=== PATIENT | female | born 1975 | race Caucasian/White ===

== ENCOUNTER 2020-02-23 12:17 | Emergency (ER) | payer BC ==
[2020-02-23 12:24] VITALS: BP 168/104; PULSE 88; RESP 18; TEMP 98
[2020-02-23] MEDS ORDERED: FLUORESCEIN STRIPS 1 MG STRIP RIGHT EYE ONE (12:44)
[2020-02-23] MEDS ORDERED: PROPARACAINE 0.5% OPHTH DROPS 15 ML BTL RIGHT EYE SCH (12:45)
--- NOTE | 2020-02-23 13:22 | ED ---
Eye Problem HPI <Mauri Alvarado - Last Filed: 02/23/20 14:01> - General Source: patient Mode of arrival: ambulatory Limitations: no limitations <Nadiya Brandon - Last Filed: 02/23/20 16:26> - General Chief complaint: Eye Problems Stated complaint: rt eye vision loss Time Seen by Provider: 02/23/20 12:29 - History of Present Illness Initial comments: 45-year-old female presenting today for chief complaint of right eye pain she states it began yesterday while she was at work taking medications out of the [employer]. Patient states it was more of a sudden on set, she states the eye is watery and extremely sensitive to light. She denies cutting wood, light exposure, welding, or known FB. Denies contact lens use. Denies URI symptoms. Patient denies autoimmune disease or glaucoma. Pt denies noting haloing. Denies vision loss, but states it is blurry due to the watering and difficult to open due to the light. Patient patient denies any headache rashes or tender sensation of the scalp. Patient states there is some slight deep pain. Patient denies any surrounding redness. Remaining review of systems negative upon arrival patient appears well but uncomfortable (Nadiya Brandon) - Related Data Home Medications Medication Instructions Recorded Confirmed Insulin Glargine,Hum.rec.anlog 45 units SQ BID 02/23/20 02/23/20 [Toujeo Solostar] Previous Rx's Medication Instructions Recorded prednisoLONE ACETATE 1% OPHTH 2 drops RIGHT EYE Q6HR 5 Days #5 ml 02/23/20 [Pred Forte 1%] Allergies Allergy/AdvReac Type Severity Reaction Status Date / Time Sulfa (Sulfonamide Allergy Rash/Hives Verified 02/23/20 12:25 Antibiotics) Review of Systems ROS Other: All systems not noted in ROS Statement are negative. <Mauri Alvarado - Last Filed: 02/23/20 14:01> ROS Other: All systems not noted in ROS Statement are negative. <Nadiya Brandon - Last Filed: 02/23/20 16:26> ROS Statement: Those systems with pertinent positive or pertinent negative responses have been documented in the HPI. Past Medical History Past Medical History: Diabetes Mellitus Additional Past Medical History / Comment(s): MARY History of Any Multi-Drug Resistant Organisms: None Reported Additional Past Surgical History / Comment(s): eye surgery, fibroid tumor, ovarian cyst. Past Psychological History: No Psychological Hx Reported Smoking Status: Former smoker Past Alcohol Use History: None Reported Past Drug Use History: None Reported <Nadiya Brandon - Last Filed: 02/23/20 16:26> General Exam Limitations: no limitations <RomaNadiya Andrew - Last Filed: 02/23/20 16:26> - General Exam Comments Initial Comments: General: The patient is awake and alert, in no distress, and does not appear acutely ill. Eye: +3 mm pupils are equal, round and reactive to light, extra-ocular movements are intact. Some consensual photophobia of the right eye. Mild pain with EOM. No swelling of the surrounding eye. no proptosis. No nystagmus. There is normal conjunctiva of the left eye. Mild-moderate non-limbus sparing injection of the right eye. No cell flare noted. No cloudiness of cornea, or ulceration noted. No FB on lid, No FB identified. No signs of icterus. No uptake of fluorcein, IOP OD 10. OS, OS, OU 20/50. Limited views of retina secondary to no dilation. No tenderness to palpation of the temporal arteries. No rashes or lesions noted on face or scalp. No dendritic lesions noted. Ears, nose, mouth and throat: There are moist mucous membranes and no oral lesions. Cardiovascular: There is a regular rate and rhythm. No murmur, rub or gallop is appreciated. Respiratory: Lungs are clear to auscultation, respirations are non-labored, breath sounds are equal. No wheezes, stridor, rales, or rhonchi. Gastrointestinal: Soft, non-distended, non-tender abdomen without masses or organomegaly noted. There is no rebound or guarding present. Musculoskeletal: Normal ROM, no tenderness. Strength 5/5. Sensation intact. Radial pulses equal bilaterally 2+. Neurological: A&O x 3. CN II-XII intact grossly, There are no obvious motor or sensory deficits. Coordination appears grossly intact. Speech is normal. Skin: Skin is warm and dry and no rashes or lesions are noted. Psychiatric: Cooperative, appropriate mood & affect, normal judgment. (Nadiya Brandon) Course Vital Signs 03/25/20 12:19 Temperature 98.0 F Pulse Rate 88 Respiratory 18 Rate Blood Pressure 168/104 O2 Sat by Pulse 98 Oximetry Medical Decision Making <Mauri Alvarado - Last Filed: 02/23/20 14:01> <Nadiya Brandon - Last Filed: 02/23/20 16:26> - Medical Decision Making Patient also evaluated by myself, Dr. Alvarado. Patient states some onset right eye discomfort yesterday. Right eye is mildly injected. Severe photophobia. Extraocular muscles intact. Visual acuity 20/50 bilateral. Case was discussed in detail with Dr. Kemp who agrees with concern for iritis. He does recommend Predacetate 4 times daily and follow-up tomorrow (Mauri Alvarado) Patient agreeable to discharge and care plan above. Patient's physical examination does not appear consistent with acute angle closure glaucoma for a temporal arteritis, there is no purulent drainage. Patient be treated for arthritis and have 24-hour follow-up with ophthalmology. Return permission to discuss at length the patient is discharged appearing well (Nadiya Brandon) Disposition <Mauri Alvarado - Last Filed: 02/23/20 14:01> Is patient prescribed a controlled substance at d/c from ED?: No Time of Disposition: 14:05 <Nadiya Brandon - Last Filed: 02/23/20 16:26> Clinical Impression: Iritis, Acute right eye pain, Redness of right eye Disposition: HOME SELF-CARE Condition: Good Instructions (If sedation given, give patient instructions): Iritis (ED) Additional Instructions: Please use medication as discussed. Please follow-up with ophthalmology tomorrow please call Dr. Kemp's office today as soon as you leave as staff is present to schedule an appointment. Please return to emergency room if the symptoms increase or worsen or for any other concerns. Prescriptions: prednisoLONE ACETATE 1% OPHTH [Pred Forte 1%] 2 drops RIGHT EYE Q6HR 5 Days #5 ml Referrals: Km Patiño MD [Primary Care Provider] - 1-2 days Cuco Kemp MD [STAFF PHYSICIAN] - 1-2 days
[2020-02-23] MEDS ORDERED: ACET/COD 300 MG/30 MG STARTER PACK 6 TAB BTL PO STA (14:06)
== END 2020-02-23 14:22 | disposition home or self-care (01) ==
LOC: EC 12:17
DX: H20.9 Unspecified iridocyclitis (principal); H57.11 Ocular pain, right eye; H57.89 Other specified disorders of eye and adnexa; E11.9 Type 2 diabetes mellitus without complications; Z88.2 Allergy status to sulfonamides; Z87.891 Personal history of nicotine dependence
CPT/HCPCS: 99283

== ENCOUNTER 2021-01-10 08:58 | Day surgery (SDC) | payer BC ==
[2021-01-08 17:13] VITALS: BMI 32.5
[~2021-01-10 08:58] MED LIST: ATROPINE OPHTH SOLN 1% 5ML BTL BOTH EYES PRN; MOXIFLOXACIN HCL 0.5% DROPS 3 ML BTL OP PRN; TETRACAINE 0.5% OPHTH (PF) DROPS 4 ML BTL OP PRN; TIMOLOL 0.5% OPHTH DROPS 5 ML BTL OP PRN
[2021-01-10 10:26] VITALS: TEMP 99
[2021-01-10] MEDS: CYCLOPENTOLATE 1% OPHTH SOLN 2 ML BTL OP PRN ×3 (10:30→10:43)
[2021-01-10] MEDS: PHENYLEPHRINE 2.5% OPHTH DRP 2ML OP PRN ×3 (10:33→10:46)
[2021-01-10] MEDS: LACTATED RINGERS 1,000 ML IV SCH ×2 (10:44→10:59)
[2021-01-10 10:47] LABS: Glucose,Whole Blood 285 mg/dL (75-99)
[2021-01-10] MEDS ORDERED: INSULIN ASPART (NovoLOG) 100 UNIT/ML VIAL SQ ONE (10:54)
[2021-01-10] MEDS ORDERED: MIDAZOLAM 2 MG/2 ML VIAL ONE (10:58)
[2021-01-10] MEDS ORDERED: fentaNYL (PF) 50 MCG/ML 2 ML AMP ONE (10:58)
[2021-01-10] MEDS ORDERED: EPINEPHrine (PF) 0.3 ML in BALANCED SALT IRRIG SOLN COMB2 500 ML IRRIGATION ONE (11:10)
[2021-01-10] MEDS ORDERED: HYALURONATE SODIUM INTRAOCULAR 1 EACH SYRINGE (12MG/ML) INTRAOCULA ONE (11:11)
[2021-01-10] MEDS ORDERED: LIDOCAINE 1% (PF) 10MG/ML VIAL MISCELLANE ONE (11:12)
[2021-01-10] MEDS ORDERED: BALANCED SALT IRRIG SOLN COMB2 15 ML IRRIG.SOLN INTRAOCULA ONE (11:12)
--- NOTE | 2021-01-10 11:25 | P.OP ---
Date of Procedure: 01/10/21 Preoperative Diagnosis: NS & CS & PSC Postoperative Diagnosis: same Implants: [id number] 31.00 Anesthesia: MAC Surgeon: Cuco Kemp Pathology: none sent Condition: stable Disposition: same day Indications for Procedure: blurry vision Operative Findings: no complications
[2021-01-10 11:32] VITALS: BP 108/69; PULSE 83; RESP 16
[2021-01-10 11:51] LABS: Glucose,Whole Blood 282 mg/dL (75-99)
--- NOTE | 2021-01-10 21:05 | OP ---
OPERATIVE REPORT DATE OF SURGERY: 01/10/2021 PROCEDURE: Phacoemulsification of cataract and intraocular lens implant of the left eye. PREOPERATIVE DIAGNOSIS: Nuclear sclerosis, cortical sclerosis, posterior subcapsular cataract. POSTOPERATIVE DIAGNOSIS: Nuclear sclerosis, cortical sclerosis, posterior subcapsular cataract. ESTIMATED BLOOD LOSS: Zero. SPECIMEN TAKEN: None. NARRATIVE: After obtaining the appropriate consent, the patient was brought to the operating room, where the patient was placed under cardiac monitoring and prepped and draped in the usual sterile manner. At the 5 o'clock position a 15-degree super sharp blade was used to create a paracentesis followed by instillation of 1% Xylocaine MPF 50:50 mix with BSS into the anterior chamber. This was followed by Amvisc to stabilize the anterior chamber. At the 3 o'clock position a self-sealing corneal flap incision was created using 2.8 mm ean keratome. A cystotome was used to initiate a continuous tear capsulorrhexis which was completed with the Utrata forceps. A Binkhorst cannula was used to hydrodissect the lens nucleus followed by hydrodelineation. Phacoemulsification of the lens was performed utilizing phaco chop in 13.09 seconds at 13% power. The remaining cortical material was removed using the irrigation and aspiration mode followed by additional 1% Xylocaine MPF into the anterior chamber followed by Amvisc to stabilize the capsular bag. A [employer]ch [employer] Lomb MX 60E 31.0 diopters posterior chamber lens was placed into the capsular bag without difficulty. The remaining viscoelastic material was removed from the anterior chamber with the irrigation/aspiration. Balanced salt solution was used to normalize the intraocular pressure. The incision was checked for watertight integrity. The patient then received two drops of 0.5% Timolol followed by two drops Vigamox and was lightly patched and shielded in the usual manner. There were no complications from the procedure. The patient tolerated the procedure well and was returned to Recovery in good condition. MMODL / IJN: [id number] /
== END 2021-01-10 12:26 | disposition home or self-care (01) ==
LOC: OR 08:58
PROVIDERS: ATTEND Ophthalmology
DX: E11.36 Type 2 diabetes mellitus with diabetic cataract (principal); H25.813 Combined forms of age-related cataract, bilateral; H52.03 Hypermetropia, bilateral; H00.026 Hordeolum internum left eye, unspecified eyelid; H00.023 Hordeolum internum right eye, unspecified eyelid; H52.11 Myopia, right eye; H52.223 Regular astigmatism, bilateral; H52.4 Presbyopia; G47.33 Obstructive sleep apnea (adult) (pediatric); K76.0 Fatty (change of) liver, not elsewhere classified; E66.9 Obesity, unspecified; Z68.32 Body mass index [BMI] 32.0-32.9, adult; Z97.3 Presence of spectacles and contact lenses; Z79.4 Long term (current) use of insulin; Z79.899 Other long term (current) drug therapy; Z88.1 Allergy status to other antibiotic agents; Z88.2 Allergy status to sulfonamides; Z98.890 Other specified postprocedural states; Z87.42 Personal history of other diseases of the female genital tract; Z83.518 Family history of other specified eye disorder; Z82.61 Family history of arthritis; Z80.9 Family history of malignant neoplasm, unspecified; Z83.3 Family history of diabetes mellitus; Z82.49 Family history of ischemic heart disease and other diseases of the circulatory system
CPT/HCPCS: 81025; 66984; C1780; J2250; J0171; J3010; J2001

== ENCOUNTER 2021-01-24 06:21 | Day surgery (SDC) | payer BC ==
[2021-01-19 12:14] VITALS: BMI 33.3
[~2021-01-24 06:21] MED LIST changes: -ATROPINE OPHTH SOLN 1% 5ML BTL BOTH EYES PRN; +LACTATED RINGERS 1,000 ML IV SCH; +LIDOCAINE 1% (10MG/ML) FOR IV START INTRADERMA PRN
[2021-01-24] MEDS: CYCLOPENTOLATE 1% OPHTH SOLN 2 ML BTL OP PRN ×3 (06:55→07:07)
[2021-01-24] MEDS: PHENYLEPHRINE 2.5% OPHTH DRP 2ML OP PRN ×3 (06:58→07:10)
[2021-01-24 07:00] VITALS: TEMP 96.9
[2021-01-24 07:11] LABS: Glucose,Whole Blood 209 mg/dL (75-99)
[2021-01-24] MEDS ORDERED: fentaNYL (PF) 50 MCG/ML 2 ML AMP ONE (07:31)
[2021-01-24] MEDS ORDERED: MIDAZOLAM 2 MG/2 ML VIAL ONE (07:31)
[2021-01-24] MEDS ORDERED: EPINEPHrine (PF) 0.3 ML in BALANCED SALT IRRIG SOLN COMB2 500 ML IRRIGATION ONE (07:45)
[2021-01-24] MEDS ORDERED: LIDOCAINE 1% (PF) 10MG/ML VIAL MISCELLANE ONE ×2 (07:47→07:53)
[2021-01-24] MEDS ORDERED: HYALURONATE SODIUM INTRAOCULAR 1 EACH SYRINGE (12MG/ML) INTRAOCULA ONE ×2 (07:47→07:52)
[2021-01-24] MEDS ORDERED: BALANCED SALT IRRIG SOLN COMB2 15 ML IRRIG.SOLN INTRAOCULA ONE ×2 (07:47→07:53)
--- NOTE | 2021-01-24 08:06 | P.OP ---
Date of Procedure: 01/24/21 Preoperative Diagnosis: NS & CS & PSC Postoperative Diagnosis: same Procedure(s) Performed: PIOL, OD Implants: MX60E 25.00 Anesthesia: MAC Surgeon: Cuco Kemp Pathology: none sent Condition: stable Disposition: same day Indications for Procedure: blurry vision Operative Findings: no complications
[2021-01-24 08:43] VITALS: BP 130/71; PULSE 80; RESP 20
--- NOTE | 2021-01-24 20:36 | OP ---
OPERATIVE REPORT DATE OF SURGERY: 01/24/2021. PROCEDURE: Phacoemulsification of cataract and intraocular lens implant of the right eye. PREOPERATIVE DIAGNOSIS: Nuclear sclerosis, cortical sclerosis, posterior subcapsular cataract. POSTOPERATIVE DIAGNOSIS: ESTIMATED BLOOD LOSS: Zero. SPECIMEN TAKEN: None. NARRATIVE: After obtaining the appropriate consent, the patient was brought to the operating room, where the patient was placed under cardiac monitoring and prepped and draped in the usual sterile manner. At the 11 o'clock position a 15-degree super sharp blade was used to create a paracentesis followed by instillation of 1% Xylocaine MPF 50:50 mix with BSS into the anterior chamber. This was followed by Amvisc to stabilize the anterior chamber. At the 9 o'clock position a self-sealing corneal flap incision was created using 2.8 mm ean keratome. A cystotome was used to initiate a continuous tear capsulorrhexis which was completed with the Utrata forceps. A Binkhorst cannula was used to hydrodissect the lens nucleus followed by hydrodelineation. Phacoemulsification of the lens was performed utilizing phacochop in 11.27 seconds at 11% power. The remaining cortical material was removed using the irrigation aspiration mode followed by additional 1% Xylocaine MPF into the anterior chamber followed by viscoelastic Amvisc to stabilize the capsular bag. A [employer]ch [employer] Lomb MX 60E 25.0 diopters posterior chamber lens was placed into the capsular bag without difficulty. The remaining viscoelastic material was removed from the anterior chamber with the irrigation/aspiration. Balanced salt solution was used to normalize the intraocular pressure. The incision was checked for watertight integrity. The patient then received two drops of 0.5% timolol followed by two drops Vigamox, was lightly patched and shielded in the usual manner. There were no complications from the procedure. The patient tolerated the procedure well and was returned to recovery in good condition. MMODL / IJN: [id number] /
== END 2021-01-24 08:37 | disposition home or self-care (01) ==
LOC: OR 06:21
PROVIDERS: ATTEND Ophthalmology
DX: H25.11 Age-related nuclear cataract, right eye (principal); H25.011 Cortical age-related cataract, right eye; H25.041 Posterior subcapsular polar age-related cataract, right eye; E11.36 Type 2 diabetes mellitus with diabetic cataract; H52.03 Hypermetropia, bilateral; H00.023 Hordeolum internum right eye, unspecified eyelid; H00.026 Hordeolum internum left eye, unspecified eyelid; Z96.1 Presence of intraocular lens; H43.813 Vitreous degeneration, bilateral; G47.30 Sleep apnea, unspecified; Z99.89 Dependence on other enabling machines and devices; Z83.3 Family history of diabetes mellitus; Z82.61 Family history of arthritis; Z82.49 Family history of ischemic heart disease and other diseases of the circulatory system; Z79.899 Other long term (current) drug therapy; Z79.4 Long term (current) use of insulin; Z88.2 Allergy status to sulfonamides; Z88.8 Allergy status to other drugs, medicaments and biological substances
CPT/HCPCS: 66984; 81025; C1780; J2250; J0171; J3010; J2001

== ENCOUNTER → 2021-11-17 | Outpatient (CLI) | payer BC ==
[2021-11-17 13:19] LABS: ALT 24 U/L (8-44); AST 16 U/L (13-35); African American GFR (CKD) 120.4 (60.0-200.0); Albumin 4.1 g/dL (3.8-4.9); Albumin/Globulin Ratio 1.64 (1.60-3.17); Alkaline Phosphatase 141 U/L (41-126); Bilirubin, Conjugated <0.20 mg/dL (0.20-0.40); Carbon Dioxide 21.9 mmol/L (20.0-27.5); Chloride 100 mmol/L (96-109); Chol/HDL Ratio 4.64 Ratio; Globulin 2.5 g/dL (1.6-3.3); LDL Cholesterol,Calculated 60.2 mg/dL (0.0-131.0); Non-African American GFR(CKD) 103.9 (60.0-200.0); Potassium 5.1 mmol/L (3.5-5.5); Sodium 133 mmol/L (135-145); Total Protein 6.6 g/dL (6.2-8.2)
== END | disposition home or self-care (01) ==
LOC: LABWHC1 08:39
PROVIDERS: ATTEND Internal Medicine
DX: E11.9 Type 2 diabetes mellitus without complications (principal)
CPT/HCPCS: 36415; 80051; 80061; 80076; 82565; 83036; 84520